=== PATIENT | male | born 1985 | race Caucasian/White ===

== ENCOUNTER 2020-08-02 01:18 | Emergency (ER) | payer OTHER ==
[2020-08-02 01:37] LABS: BASOPHIL 1.3 % (0-2); EOSINOPHIL 3.1 % (0-5); HCT 39.2 % (42.0-52.0); HGB 12.7 g/dl (13.2-18.0); LYMPHOCYTE 42.8 % (15-48); MCH 28.1 pg (25.0-31.0); MCHC 32.4 g/dL (32.0-36.0); MCV 86.7 fL (78.0-100.0); MONOCYTE 8.3 % (0-12); MPV 8.7 fL (6.0-9.5); NEUTROPHIL 44.3 % (41-80); NRBC 0; PLT 344 K/uL (150-400); RBC 4.52 M/uL (4.70-6.00); RDW 11.9 % (11.5-14.0); WBC 5.5 K/uL (4.0-10.5)
[2020-08-02 01:41] LABS: INR 1.03 (0.9-1.2); PROTHROMBIN TIME 12.8 SECONDS (11.4-13.6); PTT 34.3 SECONDS (22.2-34.7)
[2020-08-02 01:49] LABS: ALBUMIN 3.7 g/dL (3.4-5.0); BILIRUBIN - TOTAL 0.3 mg/dL (0.2-1.0); BUN/CREAT RATIO (CALC) 20.9 RATIO; CREATININE 1.1 mg/dL (0.67-1.17); GLOBULIN (CALCULATION) 3.5 g/dL; POTASSIUM 3.6 mmol/L (3.5-5.1); TOTAL PROTEIN 7.2 g/dL (6.4-8.2)
== END 2020-08-02 04:20 | disposition home or self-care (01) ==
LOC: FER 01:18
PROVIDERS: Emergency Medicine
DX: R07.89 Other chest pain (principal); R06.02 Shortness of breath; I10 Essential (primary) hypertension; F17.290 Nicotine dependence, other tobacco product, uncomplicated; Z20.822 Contact with and (suspected) exposure to COVID-19
CPT/HCPCS: 36415; 71045; 80053; 84484; 85025; 85610; 85730; 93005; U0002